=== PATIENT | male | born 1955 | race Caucasian/White ===

== ENCOUNTER → 2017-06-17 | Outpatient (CLI) | payer MEDICARE ==
[~2017-06-17] MED LIST: ASPI-715 PO; B CO PO; GLUC500C29 PO; HYDR-3629 PO; MULT-1047 PO; OMEP-218 PO; VIT1TABL85 PO
== END ==
LOC: LAB 12:47
PROVIDERS: ATTEND Urology
DX: Z12.5 Encounter for screening for malignant neoplasm of prostate (principal)
CPT/HCPCS: 36415; G0103; 84153

== ENCOUNTER → 2017-12-28 | Outpatient (CLI) | payer MEDICARE ==
[~2017-12-28] MED LIST changes: +ALB18R INH; +AMLO-96 PO; +ATOR20TA22 PO; +CYCL10TA29 PO; +CYCL5.5D OU; +DICL-195 PO; +ESCI20TA38 PO; +METF-411 PO; +OMEP20CA68 PO
[2017-12-28 11:18] LABS: LDL CHOLESTEROL 76 mg/dl
--- NOTE | 2017-12-28 11:24 | RADIOLOGY IMAGING REPORT ---
FACILITY: [facility] [place] PATIENT NAME: Sarath Murcia : 1955 MR: [id number] V: [id number] EXAM DATE: ORDERING PHYSICIAN: VIKA BUSTOS TECHNOLOGIST: Location: [facility] Patient: Sarath Murcia : 1955 Visit/Account:[id number] Date of Sevice: 12/28/2017 Technique: ANKLE 3 VIEW MIN LEFT HISTORY: ankle sprain left Comparison studies: None FINDINGS: There is no acute fracture. The ankle mortise is maintained. Incidentally noted is an Ach illes tendon enthesophyte. Soft tissues are unremarkable. IMPRESSION: 1. No acute osseous process. Report Dictated By: Jimmie Gray DO at 12/28/2017 11:19 AM Report E-Signed By: Jimmie Gray DO at 12/28/2017 11:20 AM WSN:[email or web address]
--- NOTE | 2017-12-28 11:29 | RADIOLOGY IMAGING REPORT ---
FACILITY: [facility] [place] PATIENT NAME: Sarath Murcia : 1955 MR: [id number] V: [id number] EXAM DATE: ORDERING PHYSICIAN: VIKA BUSTOS TECHNOLOGIST: Location: [facility] Patient: Sarath Murcia : 1955 Visit/Account:[id number] Date of Sevice: 12/28/2017 Technique: KNEE 3 VIEW LEFT HISTORY: ankle sprain left, gout left knee Comparison studies: None FINDINGS: There is no acute fracture. Degenerative changes are noted within the left knee characteri zed by spurring the tibial spines, tricompartmental osteophytosis and multiple intra-articular loose bodies the largest of which measures 7 mm. No large knee joint effusion. IMPRESSION: 1. Degenerative changes as characterized above. Report Dictated By: Jimmie Gray DO at 12/28/2017 11:23 AM Report E-Signed By: Jimmie Gray DO at 12/28/2017 11:26 AM WSN:[email or web address]
[2017-12-28 11:55] LABS: PLATELET COUNT, AUTOMATED 173 K/uL (150-450)
== END ==
LOC: LAB 10:22
PROVIDERS: ATTEND Internal Medicine
DX: Z12.5 Encounter for screening for malignant neoplasm of prostate (principal); I10 Essential (primary) hypertension; E11.9 Type 2 diabetes mellitus without complications; K21.9 Gastro-esophageal reflux disease without esophagitis; E78.5 Hyperlipidemia, unspecified; S93.409A Sprain of unspecified ligament of unspecified ankle, initial encounter; M10.9 Gout, unspecified
CPT/HCPCS: 73562; 73610; 81001; 82043; 83036; 84443; 84550; 85025; G0103; 36415; 82040; 82247; 82310; 82374; 82435; 82465; 82565; 82947; 83718; 84075; 84132; 84153; 84155; 84295; 84450; 84460; 84478; 84520

== ENCOUNTER → 2018-01-26 | Outpatient (CLI) | payer MEDICARE ==
[~2018-01-26] MED LIST changes: +ESCI10TA8 PO; +LISI-362 PO
--- NOTE | 2018-01-26 09:47 | RADIOLOGY IMAGING REPORT ---
FACILITY: [facility] [place] PATIENT NAME: Sarath Murcia : 1955 MR: [id number] V: [id number] EXAM DATE: ORDERING PHYSICIAN: VIKA BUSTOS TECHNOLOGIST: Location: [facility] Patient: Sarath Murcia : 1955 Visit/Account:[id number] Date of Sevice: 01/26/2018 Limited abdominal ultrasound of the right upper quadrant Indication: Elevated liver function tests. Comparison: None available Findings: There is diffuse increased echogenicity of the liver parenchyma which appears mildly heterogeneous. Appearance is consistent with diffuse fatty liver. This limits evaluation for focal lesions. There is no intrahepatic biliary dilatation. Liver contours are smooth. No perihepatic ascites. The live r measures 15.4 cm in sagittal length. There is normal hepatopedal portal venous flow. Gallbladder wall thickness is 2.3 mm with no evidence of shadowing stone or sludge within the gallbla dder lumen. Negative sonographic Simon's sign reported by the technologist. Common duct measures 4.8 mm in maximum diameter with no evidence of shadowing stone. Abdominal aorta and IVC are patent and unremarkable. The right kidney is normal in size, contour, and echotexture and measures 11.1 cm in length. The head and proximal body of the pancreas is unremarkable. The distal body and tail is obscured by o verlying bowel gas. IMPRESSION: 1. Mild diffuse fatty liver. 2. Normal gallbladder. Report Dictated By: Lewis Villagomez at 01/26/2018 9:40 AM Report E-Signed By: Lewis Villagomez at 01/26/2018 9:43 AM WSN:[email or web address]
== END ==
LOC: US 03:05
PROVIDERS: ATTEND Internal Medicine
DX: K76.0 Fatty (change of) liver, not elsewhere classified (principal)
CPT/HCPCS: 76705

== ENCOUNTER → 2018-07-06 | Outpatient (CLI) | payer MEDICARE ==
[~2018-07-06] MED LIST changes: +AMLO-125 PO; -AMLO-96 PO; +ATOR40TA69 PO; +FLU180SY11 IM; +FLUT1BLS3 INH; +LISI20TA29 PO; -METF-411 PO; +METF-450 PO
[2018-07-06 12:15] LABS: PLATELET COUNT, AUTOMATED 175 K/uL (150-450)
[2018-07-06 12:33] LABS: LDL CHOLESTEROL 150 mg/dl
== END ==
LOC: LAB 11:50
PROVIDERS: ATTEND Internal Medicine
DX: F41.9 Anxiety disorder, unspecified (principal); J45.909 Unspecified asthma, uncomplicated; I10 Essential (primary) hypertension; E11.9 Type 2 diabetes mellitus without complications; R94.5 Abnormal results of liver function studies; E78.5 Hyperlipidemia, unspecified; G47.33 Obstructive sleep apnea (adult) (pediatric)
CPT/HCPCS: 36415; 81001; 82040; 82247; 82310; 82374; 82435; 82465; 82565; 82947; 83036; 83718; 84075; 84132; 84155; 84295; 84450; 84460; 84478; 84520; 85025

== ENCOUNTER 2019-01-13 15:22 | Emergency (ER) | payer MEDICARE ==
[2019-01-13] MEDS ORDERED: NS(*) 0.9% 1000 ML BAG 1,000 ML IV ONE (15:45)
[2019-01-13] MEDS ORDERED: fentaNYL CITR 100 MCG/2 ML AMP IVP ONE (15:45)
--- NOTE | 2019-01-13 15:53 | ER Report ---
History and Physical Time Seen By MD: 15:30 Hx. of Stated Complaint: PATIENT REPORTS STEPPING OUT OF TRUCK ONTO LEFT LEG AND SUDDEN SEVERE PAIN IN THE INGUINAL AREA STARTED. STARTED AT 1000 HPI/ROS CHIEF COMPLAINT: Left leg pain HISTORY OF PRESENT ILLNESS: Patient is a 63 year old M c/o left hip pain that started after he stepped out of his spanish moss picker at 10:30am this morning. The pain has progressively gotten worse. Associated burning in his left groin. All movements make it worse, 3 IBU did not help pain. Never had a pain like this before, rates it as a 10+ /10. Hx of arthritis in his hips. REVIEW OF SYSTEMS: Respiratory: No cough, no dyspnea. Cardiovascular: No chest pain, no palpitations. Gastrointestinal: No vomiting, no abdominal pain. Musculoskeletal: No back pain, left hip pain, left groin pain Allergies: Coded Allergies: No Known Drug Allergies (Verified , 08/04/12) Home Meds Active Scripts Cyclobenzaprine Hcl (CYCLOBENZAPRINE HCL) 10 Mg Tablet, 10 MG PO TID PRN for MUSCLE SPASMS, #15 TAB Prov:TYRELL LOVE 01/13/19 Hydrocodone Bit/Acetaminophen (HYDROCODON-ACETAMINOPHEN 5-325) 1 Each Tablet, 1 EACH PO Q4-6H PRN for PAIN, #8 TAB Prov:TYRELL LOVE 01/13/19 Escitalopram Oxalate (ESCITALOPRAM OXALATE) 10 Mg Tablet, 10 MG PO QDAY, #90 TAB 1 Refill Prov:VIKA BUSTOS MD 11/08/18 Atorvastatin Calcium (ATORVASTATIN CALCIUM) 40 Mg Tablet, 1 TAB PO QDAY, #90 TAB 3 Refills Prov:VIKA BUSTOS MD 07/06/18 Lisinopril (LISINOPRIL) 20 Mg Tablet, 20 MG PO QDAY, #90 TAB 3 Refills Prov:VIKA BUSTOS MD 07/06/18 Fluticasone/Vilanterol (Breo Ellipta 200-25 Mcg INH) 1 Each Blst.w.dev, 1 PUFF INH QDAY, #1 INHALER 6 Refills Prov:VIKA BUSTOS MD 07/06/18 Albuterol Sulfate (VENTOLIN HFA) 18 Gm Inh, 2 PUFF INH Q4-6H PRN for SHORTNESS OF BREATH, #3 INH 6 Refills Prov:VIKA BUSTOS MD 07/06/18 Diclofenac Sodium (DICLOFENAC SODIUM) 75 Mg Tablet., 75 MG PO BID PRN for pain, #180 TAB 1 Refill Prov:VIKA BUSTOS MD 02/11/18 Metformin Hcl (METFORMIN HCL) 500 Mg Tablet, 1 TAB PO BID, #180 TAB 3 Refills Prov:VIKA BUSTOS MD 01/14/18 Omeprazole Magnesium (OMEPRAZOLE MAGNESIUM) 20 Mg Capsule., 20 MG PO BID, #180 CAP 3 Refills Prov:VIKA BUSTOS MD 12/24/17 Reported Medications Cyclosporine (Restasis Multidose) 0.05 % Drops, 2 DROP OU QDAY 12/24/17 Cyclobenzaprine Hcl (CYCLOBENZAPRINE HCL) 10 Mg Tablet, 10 MG PO BID PRN for PAIN, SPASM, #30 TAB 12/24/17 Past Medical/Surgical History Past medical history of migraines, asthma, GERD, hiatal hernia, arthritis, back pain, glasses, depression/anxiety Family history of lung CA father, bone CA grandpa, diabetes mom and dad Surgical history of abdominal, tonsillectomy, adenoidectomy Reviewed Nurses Notes: Yes Smoking Status: Never Smoker Constitutional Vital Sign - Last 24 Hours 01/13/19 01/13/19 15:28 18:51 Temp 97.7 Pulse 72 85 Resp 16 16 B/P (MAP) 162/90 132/85 (101) Pulse Ox 95 92 O2 Delivery Room Air Room Air Physical Exam General Appearance: The patient is alert, has no immediate need for airway protection and no current signs of toxicity. Eyes: Pupils equal and round no injection. Respiratory: Chest is non tender, lungs are clear to auscultation. Cardiac: regular rate and rhythm Gastrointestinal: Abdomen is soft and non tender, no masses, bowel sounds normal. Musculoskeletal: Neck: Neck is supple and non tender. Left lower extremity has full ROM but with significant pain, tenderness over the left AIIS and iliac crest Skin: No rashes or lesions. DIFFERENTIAL DIAGNOSIS: After history and physical exam differential diagnosis was considered for muscle strain, impingement, fracture, torn ligament Medical Decision Making Data Points Result Diagram: 01/13/19 1610 01/13/19 1610 Laboratory Hematology Test 01/13/19 16:10 White Blood Count 5.7 k/uL (4.5-11.0) Red Blood Count 4.60 M/uL (4.00-5.60) Hemoglobin 15.4 g/dL (14.0-18.0) Hematocrit 44.0 % (42.0-52.0) Mean Corpuscular Volume 95.7 fL (80.0-96.0) Mean Corpuscular Hemoglobin 33.5 pg (26.0-33.0) H Mean Corpuscular Hemoglobin Concent 35.0 g/dL (32.0-36.0) Red Cell Distribution Width 12.9 % (11.5-14.5) Platelet Count 193 K/uL (150-450) Mean Platelet Volume 9.0 fL (7.2-11.1) Neutrophils (%) (Auto) 60.4 % (39.4-72.5) Lymphocytes (%) (Auto) 26.2 % (17.6-49.6) Monocytes (%) (Auto) 8.9 % (4.1-12.4) Eosinophils (%) (Auto) 3.6 % (0.4-6.7) Basophils (%) (Auto) 0.9 % (0.3-1.4) Nucleated RBC Relative Count (auto) 0.0 /100WBC Neutrophils # (Auto) 3.4 K/uL (2.0-7.4) Lymphocytes # (Auto) 1.5 K/uL (1.3-3.6) Monocytes # (Auto) 0.5 K/uL (0.3-1.0) Eosinophils # (Auto) 0.2 K/uL (0.0-0.5) Basophils # (Auto) 0.1 K/uL (0.0-0.1) Nucleated RBC Absolute Count (auto) 0.00 K/uL Chemistry Test 01/13/19 16:10 Sodium Level 139 mmol/L (137-145) Potassium Level 4.0 mmol/L (3.5-5.0) Chloride Level 101 mmol/L (98-107) Carbon Dioxide Level 28 mmol/L (22-30) Blood Urea Nitrogen 20 mg/dl (9-21) Creatinine 1.10 mg/dl (0.66-1.25) Glomerular Filtration Rate Calc > 60.0 Random Glucose 106 mg/dl (75-110) Calcium Level 9.1 mg/dl (8.4-10.2) Total Bilirubin 1.0 mg/dl (0.2-1.3) Aspartate Amino Transf (AST/SGOT) 34 U/L (0-35) Alanine Aminotransferase (ALT/SGPT) 60 U/L (0-56) Alkaline Phosphatase 77 U/L (0-126) Total Protein 7.4 g/dl (6.3-8.2) Albumin 4.4 g/dl (3.5-5.0) EKG/Imaging Imaging EXAMINATION: Left hip, 2 views 01/13/2019 3:45 PM HISTORY: pain after stepping out of the truck COMPARISON: None FINDINGS: Images include AP pelvis and frog-leg left hip. Mild spurring along the acetabular margins is fairly symmetric. There potentially is slight hip joint space loss on the left. No fracture or other acute bony finding on either side. Remainder of the bony pelvis is intact. IMPRESSION: Mild degenerative changes in the hips. No acute bony finding. Report Dictated By: Nimesh Sahu MD at 01/13/2019 5:00 PM Report E-Signed By: Nimesh Sahu MD at 01/13/2019 5:02 PM WSN:[email or web address] ED Course/Re-evaluation ED Course Patient presented to ED with pain in his left hip and groin after stepping weird out of his spanish moss picker earlier today around 10AM. States he had some groin pain 2 weeks previously similar to toady but less severe. He had also been doing a lot of heavy lifting for the past 2 weeks. Patient has a history of arthritis in bilateral hips. His pain has been worsening and stated it was a 10+ on the pain scale. Tried taking Aleve with no improvement. Patient was uncomfortable and unable to stay still on exam table. Was given 50mcg of fentanyl with no improvement on pain. Given 60mg of Norflex with no improvement. Had tenderness to palpation of iliac crest of hip as well as AIIS of the left hip. Pain with abduction. Differential Diagnoses considered. Left hip x-ray ordered that showed mild degenerative changes of hip congruent with arthritis but no acute abnormalities. Patient was given crutches, 8 tabs of 5-325mg Hydrocodone and 8 tabs of 10mg Cyclobenzaprine. Patient understood muscle strain diagnosis and was discharged. Instructed to follow up with PCP. Decision to Disposition Date: Jan 13, 2019 Decision to Disposition Time: 17:31 Depart Departure Latest Vital Signs Vital Signs Date Time Temp Pulse Resp B/P (MAP) Pulse Ox O2 Delivery O2 Flow Rate FiO2 01/13/19 18:51 85 16 132/85 (101) 92 Room Air 01/13/19 15:28 97.7 Impression: Primary Impression: Muscle strain of thigh Condition: Improved Disposition: HOME OR SELF-CARE Referrals: VIKA BUSTOS MD (PCP) New Scripts Cyclobenzaprine Hcl (CYCLOBENZAPRINE HCL) 10 Mg Tablet 10 MG PO TID PRN for MUSCLE SPASMS, #15 TAB Prov: TYRELL LOVE 01/13/19 Hydrocodone Bit/Acetaminophen (HYDROCODON-ACETAMINOPHEN 5-325) 1 Each Tablet 1 EACH PO Q4-6H PRN for PAIN, #8 TAB Prov: TYRELL LOVE 01/13/19 Patient Instructions: Hip Pain (ED) Additional Instructions: Take medications as instructed. Do not operate heavy machinery or drive on [place]. Take Ibuprofen up to 800mg every 8 hours for pain. Follow up with primary care provider. Return to ED if pain suddenly worsens. Problem Qualifiers Primary Impression: Muscle strain of thigh Encounter type: initial encounter Laterality: left Qualified Codes: S76.912A - Strain of unspecified muscles, fascia and tendons at thigh level, left thigh, initial encounter TYRELL LOVE Jan 13, 2019 15:53
[2019-01-13 16:47] LABS: PLATELET COUNT, AUTOMATED 193 K/uL (150-450)
[2019-01-13] MEDS ORDERED: ORPHENADRINE 60MG/2ML INJ IVP ONE (17:05)
--- NOTE | 2019-01-13 17:09 | RADIOLOGY IMAGING REPORT ---
FACILITY: [facility] [place] PATIENT NAME: Sarath Murcia : 1955 MR: [id number] V: [id number] EXAM DATE: ORDERING PHYSICIAN: TYRELL LOVE TECHNOLOGIST: Location: [facility] [place] Patient: Sarath Murcia : 1955 Visit/Account:[id number] Date of Sevice: 01/13/2019 EXAMINATION: Left hip, 2 views 01/13/2019 3:45 PM HISTORY: pain after stepping out of the truck COMPARISON: None FINDINGS: Images include AP pelvis and frog-leg left hip. Mild spurring along the acetabular margin s is fairly symmetric. There potentially is slight hip joint space loss on the left. No fracture or other acute bony finding on either side. Remainder of the bony pelvis is intact. IMPRESSION: Mild degenerative changes in the hips. No acute bony finding. Report Dictated By: Nimesh Sahu MD at 01/13/2019 5:00 PM Report E-Signed By: Nimesh Sahu MD at 01/13/2019 5:02 PM WSN:[email or web address]
[2019-01-13] MEDS ORDERED: HYDR-385 PO ×2 (17:33→18:41)
[2019-01-13] MEDS ORDERED: CYCL10TA29 PO ×2 (17:33→18:41)
[2019-01-13 18:51] VITALS: BP 132/85
== END 2019-01-13 18:51 | disposition home or self-care (01) ==
LOC: ER 15:41
DX: S76.912A Strain of unspecified muscles, fascia and tendons at thigh level, left thigh, initial encounter (principal)
CPT/HCPCS: 73502; 85025; 96361; 96374; 99284; J2360; J3010; J7030; 82040; 82247; 82310; 82374; 82435; 82565; 82947; 84075; 84132; 84155; 84295; 84450; 84460; 84520

== ENCOUNTER 2019-01-15 14:58 | Emergency (ER) | payer MEDICARE ==
[~2019-01-15 14:58] MED LIST changes: -METH4TAB66 PO; -OXYC-865 PO
[2019-01-15] MEDS ORDERED: fentaNYL CITR 100 MCG/2 ML AMP IVP ONE ×2 (15:15→16:25)
[2019-01-15] MEDS ORDERED: LORazepam 2 MG/ML VIAL IVP ONE (15:15)
--- NOTE | 2019-01-15 15:23 | ER Report ---
History and Physical Time Seen By MD: 15:15 Hx. of Stated Complaint: WORSENING LEFT GROIN PAIN HPI/ROS CHIEF COMPLAINT: Worsening left leg and thigh pain HISTORY OF PRESENT ILLNESS: Patient is a 63-year-old male who presents to the emergency department for worsening left leg pain. He states he was seen 2 days ago after stepping out of his truck he developed pain to the left hip area but since then and is now having pain that is more towards the left lumbar area that radiates around the lateral to the anterior thigh and into the knee and there is numbness at the knee. He denies any new injuries. He has been taking hydrocodone that was prescribed at that time for pain without significant relief. He has no known prior back injuries. He states that he is unable to get an MRI because he has medical in his face that has not yet been removed. He denies any saddle anesthesia. Denies any incontinence or retention of stool or urine. He is unable to ambulate secondary to the pain and for that reason had to be brought in by ambulance. REVIEW OF SYSTEMS: Respiratory: No cough, no dyspnea. Cardiovascular: No chest pain, no palpitations. Gastrointestinal: No vomiting, no abdominal pain. Musculoskeletal: Back, left leg and thigh pain. Allergies: Coded Allergies: No Known Drug Allergies (Verified , 08/04/12) Home Meds Active Scripts Cyclobenzaprine Hcl (CYCLOBENZAPRINE HCL) 10 Mg Tablet, 10 MG PO TID PRN for MUSCLE SPASMS, #15 TAB Prov:TYRELL LOVE 01/13/19 Hydrocodone Bit/Acetaminophen (HYDROCODON-ACETAMINOPHEN 5-325) 1 Each Tablet, 1 EACH PO Q4-6H PRN for PAIN, #8 TAB Prov:TYRELL LOVE 01/13/19 Escitalopram Oxalate (ESCITALOPRAM OXALATE) 10 Mg Tablet, 10 MG PO QDAY, #90 TAB 1 Refill Prov:VIKA BUSTOS MD 11/08/18 Atorvastatin Calcium (ATORVASTATIN CALCIUM) 40 Mg Tablet, 1 TAB PO QDAY, #90 TAB 3 Refills Prov:VIKA BUSTOS MD 07/06/18 Lisinopril (LISINOPRIL) 20 Mg Tablet, 20 MG PO QDAY, #90 TAB 3 Refills Prov:VIKA BUSTOS MD 07/06/18 Fluticasone/Vilanterol (Breo Ellipta 200-25 Mcg INH) 1 Each Blst.w.dev, 1 PUFF INH QDAY, #1 INHALER 6 Refills Prov:VIKA BUSTOS MD 07/06/18 Albuterol Sulfate (VENTOLIN HFA) 18 Gm Inh, 2 PUFF INH Q4-6H PRN for SHORTNESS OF BREATH, #3 INH 6 Refills Prov:VIKA BUSTOS MD 07/06/18 Diclofenac Sodium (DICLOFENAC SODIUM) 75 Mg Tablet., 75 MG PO BID PRN for pain, #180 TAB 1 Refill Prov:VIKA BUSTOS MD 02/11/18 Metformin Hcl (METFORMIN HCL) 500 Mg Tablet, 1 TAB PO BID, #180 TAB 3 Refills Prov:VIKA BUSTOS MD 01/14/18 Omeprazole Magnesium (OMEPRAZOLE MAGNESIUM) 20 Mg Capsule., 20 MG PO BID, #180 CAP 3 Refills Prov:VIKA BUSTOS MD 12/24/17 Reported Medications Cyclosporine (Restasis Multidose) 0.05 % Drops, 2 DROP OU QDAY 12/24/17 Cyclobenzaprine Hcl (CYCLOBENZAPRINE HCL) 10 Mg Tablet, 10 MG PO BID PRN for PAIN, SPASM, #30 TAB 12/24/17 Past Medical/Surgical History Hypertension, gastroesophageal reflux disease, reactive airways disease Smoking Status: Never Smoker Constitutional Vital Sign - Last 24 Hours 01/15/19 15:04 Temp 98.4 Pulse 74 Resp 12 B/P (MAP) 158/82 Pulse Ox 96 O2 Delivery Room Air Physical Exam General appearance: alert no distress. Back: Thoracic spine has no spinal or paraspinal tenderness to palpation. Lumbar spine has no spinal tenderness moderateparaspinal tenderness Gastroinal: Abdomen is soft, non tender, no masses.. Skin: No lesions and no rashes. Vascular: Normal capillary refill and pulses to feet. Neurological: Motor function: leg strength normal and symmetric for both legs Sensory function: The patient numbness along the L3-L4 dermatomes of the left back. Decreased range of motion to the left leg secondary to pain Reflexes normal bilaterally on legs. [ ] DIFFERENTIAL DIAGNOSIS: After history and physical exam differential diagnosis was considered for back pain including muscular strain, herniated disc, intra- abdominal and renal causes. Medical Decision Making EKG/Imaging Imaging FACILITY: [facility] [place] PATIENT NAME: Sarath Murcia : 1955 MR: [id number] V: [id number] EXAM DATE: ORDERING PHYSICIAN: SALUD HERR TECHNOLOGIST: Location: [facility] Patient: Sarath Murcia : 1955 Visit/Account:[id number] Date of Sevice: 01/15/2019 CT HIP LEFT W/O HISTORY: pain TECHNIQUE: CT images were obtained through the left hip without intravenous contrast. Coronal and sagittal reformatted images were obtained from the initial data. One of the following dose optimization techniques was utilized in the performance of this exam: automated exposure control; adjustment of the mA and/or kv according to patient size; or use of iterative reconstruction technique. Specific details can be referenced in the facility's radiology CT exam operational policy. CONTRAST: None COMPARISON: X-ray 01/13/2019 FINDINGS: Left hip: No acute fracture or dislocation. Mild degenerative changes with tiny acetabular osteophytes. Mild acetabular over coverage with proliferative change at the femoral head-neck junction. No joint effusion No loose body. Other bony structures: No acute fracture. Pubic symphysis and SI joints: Small exostosis from the anterior aspect of the left superior pubic ramus near the pubic symphysis. 8 mm sclerotic lesion within the acetabular roof. Mild degenerative changes at the left SI joint. Soft tissues: Normal Intrapelvic and lower abdominal findings: None significant Visualized spine: Moderate degenerative disc disease at L5-S1. Other findings: None significant IMPRESSION: 1. Left hip shows no acute osseous abnormality. Mild degenerative changes with probable findings of long-standing femoral acetabular impingement which can pred ispose to labral tearing. Report Dictated By: Cj Evans MD at 01/15/2019 4:10 PM Report E-Signed By: Cj Evans MD at 01/15/2019 4:17 PM WSN:[id number] FACILITY: [facility] [place] PATIENT NAME: Sarath Murcia : 1955 MR: [id number] V: [id number] EXAM DATE: ORDERING PHYSICIAN: SALUD HERR TECHNOLOGIST: Location: [facility] Patient: Sarath Murcia : 1955 Visit/Account:[id number] Date of Sevice: 01/15/2019 CT VERTEBRA LUMBAR (NON CON) HISTORY: Back pain. Left hip pain. COMPARISON STUDIES: None TECHNIQUE: Axial images were obtained from the thoraco-lumbar junction through the upper sacrum without IV contrast administration. Coronal and sagittal reformatted images were obtained from the axial source data. One of the following dose optimization techniques was utilized in the performance of this exam: automated exposure control; adjustment of the mA and/or kv according to patient size; or use of iterative reconstruction technique. Specific details can be referenced in the facility's radiology CT exam operational policy. FINDINGS: Paravertebral soft tissues: Negative Alignment: Negative Vertebral bodies: Negative Posterior elements: Negative Disc Spaces: Moderate degenerative disc disease at L5-S1. Visualized retroperitoneal / abdominal structures: 3 mm nonobstructing left renal calculus. No hydronephrosis. Marked distention of the urinary bladder. Small duodenal diverticulum. Other findings: Mild degenerative changes at the bilateral SI joints. IMPRESSION: 1. Moderate degenerative disc disease at L5-S1. 2. 3 mm nonobstructing left renal calculus. 3. Marked distention of the urinary bladder, etiology unclear. Recommend clinical correlation. Report Dictated By: Cj Evans MD at 01/15/2019 4:17 PM Report E-Signed By: Cj Evans MD at 01/15/2019 4:22 PM WSN:[id number] ED Course/Re-evaluation ED Course 01/15/2019 3:18:44 pm plan at this time will be IV pain medication, we'll also obtain a CT scan of the lumbar spine as well as the left hip. Unable to obtain an MRI as patient has foreign body in the face Decision to Disposition Date: Jan 15, 2019 Decision to Disposition Time: 16:48 Depart Departure Latest Vital Signs Vital Signs Date Time Temp Pulse Resp B/P (MAP) Pulse Ox O2 Delivery O2 Flow Rate FiO2 01/15/19 15:04 98.4 74 12 158/82 96 Room Air Impression: Primary Impression: Left hip pain Additional Impression: Back pain Condition: Improved Disposition: HOME OR SELF-CARE Referrals: VIKA BUSTOS MD (PCP) PAMELA BLAKE MD call Thursday to schedule a follow up appointment for evaluation of hip pain and hernated lumbar disc New Scripts Methylprednisolone (METHYLPREDNISOLONE) 4 Mg Tab.ds.pk 4 MG PO DIRECTED, #1 PACK 0 Refills Prov: SALUD HERR MD 01/15/19 Patient Instructions: Acute Low Back Pain (GEN), Hip Pain (GEN) Additional Instructions: When you completed your hydrocodone tablets that you already have for pain, you may begin taking the Percocet as needed for pain as directed and your prescri ption, do not combine these medications use one or the other. Take your Medrol Dosepak as directed. Call [facility] to schedule an evaluation for your hip ([place]) and your back (Dr Blake) Problem Qualifiers Additional Impression: Back pain Back pain location: low back pain Chronicity: acute Back pain laterality: left Sciatica presence: with sciatica Sciatica laterality: sciatica of right side Qualified Codes: M54.41 - Lumbago with sciatica, right side SALUD HERR MD Jan 15, 2019 15:23
[2019-01-15] MEDS ORDERED: methylPREDNIS SUCC 125 MG/2ML IVP ONE (16:25)
--- NOTE | 2019-01-15 16:26 | RADIOLOGY IMAGING REPORT ---
FACILITY: PATIENT NAME: Sarath Murcia : 1955 MR: [id number] V: [id number] EXAM DATE: ORDERING PHYSICIAN: SALUD HERR TECHNOLOGIST: Location: [facility] [place] Patient: Sarath Murcia : 1955 Visit/Account:[id number] Date of Sevice: 01/15/2019 CT HIP LEFT W/O HISTORY: pain TECHNIQUE: CT images were obtained through the left hip without intravenous contrast. Coronal and sa gittal reformatted images were obtained from the initial data. One of the following dose optimization techniques was utilized in the performance of this exam: automated exposure control; adjustment of t he mA and/or kv according to patient size; or use of iterative reconstruction technique. Specific det ails can be referenced in the facility's radiology CT exam operational policy. CONTRAST: None COMPARISON: X-ray 01/13/2019 FINDINGS: Left hip: No acute fracture or dislocation. Mild degenerative changes with tiny acetabular osteophyte s. Mild acetabular over coverage with proliferative change at the femoral head-neck junction. No join t effusion No loose body. Other bony structures: No acute fracture. Pubic symphysis and SI joints: Small exostosis from the anterior aspect of the left superior pubic ra mus near the pubic symphysis. 8 mm sclerotic lesion within the acetabular roof. Mild degenerative margarito nges at the left SI joint. Soft tissues: Normal Intrapelvic and lower abdominal findings: None significant Visualized spine: Moderate degenerative disc disease at L5-S1. Other findings: None significant IMPRESSION: 1. Left hip shows no acute osseous abnormality. Mild degenerative changes with probable findings of l merry-standing femoral acetabular impingement which can predispose to labral tearing. Report Dictated By: Cj Evans MD at 01/15/2019 4:10 PM Report E-Signed By: Cj Evans MD at 01/15/2019 4:17 PM WSN:[id number]
--- NOTE | 2019-01-15 16:31 | RADIOLOGY IMAGING REPORT ---
FACILITY: [facility] PATIENT NAME: Sarath Murcia : 1955 MR: [id number] V: [id number] EXAM DATE: ORDERING PHYSICIAN: SALUD HERR TECHNOLOGIST: Location: [facility] [place] Patient: Sarath Murcia : 1955 Visit/Account:[id number] Date of Sevice: 01/15/2019 CT VERTEBRA LUMBAR (NON CON) HISTORY: Back pain. Left hip pain. COMPARISON STUDIES: None TECHNIQUE: Axial images were obtained from the thoraco-lumbar junction through the upper sacrum with out IV contrast administration. Coronal and sagittal reformatted images were obtained from the axial source data. One of the following dose optimization techniques was utilized in the performance of [facility] s exam: automated exposure control; adjustment of the mA and/or kv according to patient size; or use of iterative reconstruction technique. Specific details can be referenced in the facility's radiology CT exam operational policy. FINDINGS: Paravertebral soft tissues: Negative Alignment: Negative Vertebral bodies: Negative Posterior elements: Negative Disc Spaces: Moderate degenerative disc disease at L5-S1. Visualized retroperitoneal / abdominal structures: 3 mm nonobstructing left renal calculus. No hydron ephrosis. Marked distention of the urinary bladder. Small duodenal diverticulum. Other findings: Mild degenerative changes at the bilateral SI joints. IMPRESSION: 1. Moderate degenerative disc disease at L5-S1. 2. 3 mm nonobstructing left renal calculus. 3. Marked distention of the urinary bladder, etiology unclear. Recommend clinical correlation. Report Dictated By: Cj Evans MD at 01/15/2019 4:17 PM Report E-Signed By: Cj Evans MD at 01/15/2019 4:22 PM WSN:[id number]
[2019-01-15 16:43] VITALS: BP 174/94
[2019-01-15] MEDS ORDERED: METH4TAB66 PO (16:55)
[2019-01-15] MEDS ORDERED: OXYC-865 PO (16:55)
== END 2019-01-15 17:05 | disposition home or self-care (01) ==
LOC: ER 15:00
DX: M54.41 Lumbago with sciatica, right side (principal); M25.552 Pain in left hip
CPT/HCPCS: 72131; 73700; 96374; 96375; 96376; 99284; J2060; J2930; J3010

== ENCOUNTER → 2019-01-15 | Outpatient (CLI) | payer MEDICARE ==
[~2019-01-15] MED LIST changes: +HYDR-385 PO; +METH4TAB66 PO; +OXYC-865 PO
== END ==
LOC: AMB 14:13
PROVIDERS: ATTEND Nurse Practitioner
DX: M25.552 Pain in left hip (principal)
CPT/HCPCS: A0425; A0427